=== PATIENT | female | born 1960 | race Caucasian/White ===

== ENCOUNTER 2017-05-15 11:38 | Day surgery (SDC) | payer BC ==
[2017-05-13 09:56] LABS: Basophils % (Auto) 0.4 % (0.0-1.8); Eosinophils # (Auto) 0.3 K/mm3 (0.0-0.4); Eosinophils % (Auto) 3.4 % (0.0-4.3); Hematocrit 43.6 % (30.3-42.9); Hemoglobin 14.8 gm/dl (10.1-14.3); Lymphocytes # (Auto) 1.8 K/mm3 (1.2-5.4); Mean Corpuscular HGB Conc 34 % (30-34); Mean Corpuscular Hemoglobin 29 pg (28-32); Mean Corpuscular Volume 87 fl (79-97); Monocytes # (Auto) 0.5 K/mm3 (0.0-0.8); Monocytes % (Auto) 6.7 % (0.0-7.3); Platelet Count 282 K/mm3 (140-440); Red Blood Count 5.02 M/mm3 (3.65-5.03); Red Cell Distribution Width 14.1 % (13.2-15.2)
[2017-05-13 10:14] LABS: BUN/Creatinine Ratio 30; Blood Urea Nitrogen 15 mg/dL (7-17); Calcium 9.3 mg/dL (8.4-10.2); Hemolysis Index 14
--- NOTE | 2017-05-13 10:24 | Anesthesia Consultation ---
Anesthesia Consult and Med Hx Date of service: 05/15/17 - Airway Anesthetic Teeth Evaluation: Good ROM Head & Neck: Adequate Mental/Hyoid Distance: Adequate Mallampati Class: Class II Intubation Access Assessment: Probably Good - Pulmonary Exam CTA: Yes - Cardiac Exam Cardiac Exam: RRR - Pre-Operative Health Status ASA Pre-Surgery Classification: ASA2 Proposed Anesthetic Plan: General - Pulmonary Hx Smoking: No - Cardiovascular System Hx Hypertension: Yes (since age 34) - Central Nervous System Hx Psychiatric Problems: No - Gastrointestinal Hx Gastroesophageal Reflux Disease: Yes - Other Systems Hx Cancer: No Hx Obesity: Yes - Additional Comments Anesthesia Medical History Comments: Informed consent obtained
[2017-05-15] MEDS ORDERED: ZOFRAN IV PRN (12:59)
[2017-05-15] MEDS ORDERED: DILAUDID IV PRN (12:59)
[2017-05-15] MEDS ORDERED: VERSED IV NR (13:00)
[2017-05-15] MEDS ORDERED: LACTATED RINGERS 1,000 ML IV SCH (13:00)
--- NOTE | 2017-05-15 13:07 | Anesthesia Day of Surgery ---
Anesthesia Day of Surgery - Day of Surgery Patient Examined: Yes Patient H&P Reviewed: Yes Patient is NPO: Yes Beta Blockers: Yes Cardiac Clearance: Yes Pulmonary Clearance: Yes Zohaib's Test: N/A
[2017-05-15] MEDS ORDERED: NACL BACTERIOSTATIC INFILTRATI ONE (13:31)
[2017-05-15] MEDS ORDERED: SILVER NITRATE TP ONE (14:02)
[2017-05-15] MEDS ORDERED: SUBLIMAZE ONE (14:04)
[2017-05-15] MEDS ORDERED: DIPRIVAN 10 MG/ML IV ONE ×2 (14:04→14:16)
[2017-05-15] MEDS ORDERED: XYLOCAINE MPF 2% ONE (14:04)
[2017-05-15] MEDS ORDERED: ZEMURON IV ONE (14:05)
[2017-05-15] MEDS ORDERED: DECADRON ONE (14:23)
[2017-05-15] MEDS ORDERED: ZOFRAN ONE (14:23)
[2017-05-15] MEDS ORDERED: NACL 0.9% IR ONE (14:30)
--- NOTE | 2017-05-15 14:53 | Post Anesthesia Evaluation ---
- Post Anesthesia Evaluation Patient Participated: Yes Airway Patent: Yes Stable Respiratory Function: Yes Nausea/Vomiting: No Temp > 96.8F: Yes Pain Manageable: Yes Adequeate Hydration: Yes Anesthesia Complications: No
--- NOTE | 2017-05-15 15:00 | Operative Report ---
Operative Report Operative Report: Preoperative diagnosis: 1. IUD migration. Postoperative diagnosis: same Procedure: 1. Hysteroscopy. 2. Removal of IUD. Anesthesia: General Surgeon: Dr. Suazo Ager Tender: none Complications: none EBL: minimal IVF: 1 L RL Procedure details: Risks, benefits, and alternatives of the procedure were discussed in detail with the patient which included but not limited to risk of infection, hemorrhage requiring blood transfusion, and uterine perforation. The patient expressed understanding, her questions were answered, and she gave informed consent. Patient was taken to the operating room with an IV fluid infusing lingers lactate. In the operating room, she was placed in a dorsal supine position and given general anesthesia. She was then placed on the stirups in a dorsolithotomy position. The vagina and cervix were washed and she was prepared and draped in usual sterile fashion. Examination under anesthesia revealed normal genitalia, vagina, and cervixT The uterus was 10-12 week size, anteverted, and mobile. The adnexa were nonpalpable. A weighted speculum was placed on the posterior vaginal wall, the anterior lip of the cervix was grasped with an Allis clamp. The cervical os was dilated. The hysteroscope was introduced into the uterine cavity. It revealed the IUD impacted in the upper part of the uterine fundus. A forcep was used to remove the IUD which came out intact. The hysteroscope was removed from the uterine cavity. The counts of laps, needles, sponges and instruments were correct 2. The patient tolerated the procedure well. She was taken to the recovery room in a stable condition.
[2017-05-15] MEDS ORDERED: PERCOCET 5/325 PO PRN (15:30)
[2017-05-15 15:37] VITALS: BP 116/70
== END 2017-05-15 16:10 | disposition home or self-care (01) ==
LOC: OR 11:38
PROVIDERS: ATTEND Obstetrics & Gynecology
DX: T83.32XA Displacement of intrauterine contraceptive device, initial encounter (principal); K21.9 Gastro-esophageal reflux disease without esophagitis; I10 Essential (primary) hypertension; E66.9 Obesity, unspecified; Z68.32 Body mass index [BMI] 32.0-32.9, adult; Y83.1 Surgical operation with implant of artificial internal device as the cause of abnormal reaction of the patient, or of later complication, without mention of misadventure at the time of the procedure
CPT/HCPCS: 36415; 58562; 80048; 85025; 88300; A4217; J1100; J2405; J2704; J3010; J7120; 88302; J2250

== ENCOUNTER 2020-05-06 14:12 | Emergency (ER) | payer BC ==
--- NOTE | 2020-05-06 16:01 | Event Note ---
ED Screening Note Date of service: 05/06/20 ED Screening Note: 59-year-old female presents to the emergency room for fever and nausea x6 days. Last took Tylenol and ibuprofen 12 PM today. Mild cough no sore throat no ear pain no chest pain no stomach pain no shortness of breath. This initial assessment/diagnostic orders/clinical plan/treatment(s) is/are subject to change based on patients health status, clinical progression and re- assessment by fellow clinical providers in the ED. Further treatment and workup at subsequent clinical providers discretion. Patient/guardian urged not to elope from the ED as their condition may be serious if not clinically assessed and managed. Initial orders include:
--- NOTE | 2020-05-06 16:24 | XRay Report ---
XR chest routine 2V INDICATION / CLINICAL INFORMATION: Fever positive Covid contact. COMPARISON: None FINDINGS: SUPPORT DEVICES: None. HEART /PULMONARY VASCULATURE: No significant abnormality. LUNGS / PLEURA: There are bilateral pulmonary airspace consolidations, most pronounced in the right l ower lobe. No pleural effusion. No pneumothorax. ADDITIONAL FINDINGS: No significant additional findings. IMPRESSION: Bilateral airspace disease, most compatible with pneumonia. Signer Name: Elgin Aquino MD Signed: 05/06/2020 4:20 PM Workstation Name: [id number] [id number]
[2020-05-06] MEDS ORDERED: IBUPROFEN 600 MG TAB PO ONE (20:19)
[2020-05-06 20:20] VITALS: BP 139/68
--- NOTE | 2020-05-06 20:20 | Emergency Department Report ---
ED General Adult HPI - General Chief complaint: Fever Stated complaint: FEVER Source: patient Mode of arrival: Ambulatory Limitations: Language Barrier - History of Present Illness Initial comments: 59-year-old female presents to the emergency room for fever and nausea x6 days. Last took Tylenol and ibuprofen 12 PM today. Mild cough no sore throat no ear pain no chest pain no stomach pain no shortness of breath. No loss of taste or smell. Onset/Timin -: days(s) Severity scale (0 -10): 5 Consistency: intermittent Improves with: none Worsens with: none Associated Symptoms: cough (Slight), fever/chills. denies: chest pain, diaphoresis, headaches, loss of appetite, shortness of breath Treatments Prior to Arrival: NSAID, other - Related Data Home Medications Medication Instructions Recorded Confirmed Last Taken Losartan/Hydrochlorothiazide 1 each PO DAILY 05/10/17 05/15/17 05/14/17 19:00 [Losartan-Hctz 50-12.5 mg Tab] Ascorbic Acid [Vitamin C] 1,000 mg PO DAILY 05/15/17 05/15/17 05/11/17 Atenolol [Tenormin] 100 mg PO DAILY 05/15/17 05/15/17 05/14/17 Ergocalciferol [Vitamin D2] 1 cap PO QWEEK 05/15/17 05/15/17 05/13/17 FLUoxetine [PROzac] 10 mg PO QDAY 05/15/17 05/15/17 05/14/17 Ibuprofen 800 mg PO TID 05/15/17 05/15/17 2 Weeks Ago ~05/01/17 Jupiter-3 Fatty Acids/Fish Oil [Fish 1 each PO DAILY 05/15/17 05/15/17 05/11/17 Oil] Omeprazole 20 mg PO DAILY PRN 05/15/17 05/15/17 1 Month Ago ~04/14/17 Previous Rx's Medication Instructions Recorded Last Taken Type Azithromycin [Zithromax Z-VENU] 250 mg PO DAILY #6 tab 05/06/20 Unknown Rx predniSONE [Deltasone] 40 mg PO QDAY 5 Days #10 tab 05/06/20 Unknown Rx Allergies Allergy/AdvReac Type Severity Reaction Status Date / Time No Known Allergies Allergy Verified 05/06/20 14:50 ED Review of Systems ROS: Stated complaint: FEVER Other details as noted in HPI Comment: All other systems reviewed and negative ED Past Medical Hx - Past Medical History Hx Hypertension: Yes (since age 34) Hx GERD: Yes Hx Kidney Stones: Yes - Surgical History Hx Cholecystectomy: Yes - Social History Smoking Status: Never Smoker Substance Use Type: None - Medications Home Medications: Home Medications Medication Instructions Recorded Confirmed Last Taken Type Losartan/Hydrochlorothiazide 1 each PO DAILY 05/10/17 05/15/17 05/14/17 19:00 History [Losartan-Hctz 50-12.5 mg Tab] Ascorbic Acid [Vitamin C] 1,000 mg PO DAILY 05/15/17 05/15/17 05/11/17 History Atenolol [Tenormin] 100 mg PO DAILY 05/15/17 05/15/17 05/14/17 History Ergocalciferol [Vitamin D2] 1 cap PO QWEEK 05/15/17 05/15/17 05/13/17 History FLUoxetine [PROzac] 10 mg PO QDAY 05/15/17 05/15/17 05/14/17 History Ibuprofen 800 mg PO TID 05/15/17 05/15/17 2 Weeks Ago History ~05/01/17 Jupiter-3 Fatty Acids/Fish Oil [Fish 1 each PO DAILY 05/15/17 05/15/17 05/11/17 History Oil] Omeprazole 20 mg PO DAILY PRN 05/15/17 05/15/17 1 Month Ago History ~04/14/17 Azithromycin [Zithromax Z-VENU] 250 mg PO DAILY #6 tab 05/06/20 Unknown Rx predniSONE [Deltasone] 40 mg PO QDAY 5 Days #10 tab 05/06/20 Unknown Rx ED Physical Exam - General Limitations: Language Barrier General appearance: alert, in no apparent distress - Head Head exam: Present: atraumatic, normocephalic - Eye Eye exam: Present: normal appearance - ENT ENT exam: Present: mucous membranes moist - Neck Neck exam: Present: normal inspection - Respiratory Respiratory exam: Present: rales, decreased breath sounds. Absent: respiratory distress - Cardiovascular Cardiovascular Exam: Present: regular rate, normal rhythm. Absent: systolic murmur, diastolic murmur, rubs, gallop - GI/Abdominal GI/Abdominal exam: Present: soft. Absent: distended, tenderness - Extremities Exam Extremities exam: Present: normal inspection - Back Exam Back exam: Present: normal inspection - Neurological Exam Neurological exam: Present: alert, oriented X3, normal gait - Psychiatric Psychiatric exam: Present: normal affect, normal mood - Skin Skin exam: Present: warm, dry, intact, normal color. Absent: rash ED Course Vital Signs 05/06/20 14:54 Temperature 98.9 F Pulse Rate 80 Respiratory 18 Rate Blood Pressure 113/68 O2 Sat by Pulse 96 Oximetry ED Medical Decision Making - Medical Decision Making 59-year-old female presents to the emergency room for fever and nausea x6 days. Last took Tylenol and ibuprofen 12 PM today. Mild cough no sore throat no ear pain no chest pain no stomach pain no shortness of breath. No loss of taste or smell. Critical care attestation.: If time is entered above; I have spent that time in minutes in the direct care of this critically ill patient, excluding procedure time. ED Disposition Clinical Impression: Pneumonia, Suspected severe acute respiratory syndrome coronavirus 2 (SARS-CoV-2) infection Disposition: TO HOME OR SELFCARE Is pt being admited?: No Does the pt Need Aspirin: No Condition: Stable Instructions: Bacterial Pneumonia (ED), Prevent the Spread of COVID-19 if You Are Sick - CDC, COVID-19 Additional Instructions: X-ray shows that she has bilateral patchy pneumonia which is consistent with Covid 19 pneumonia. I would like for her to complete her antibiotics take the steroids and increase her fluid intake. Recommend Tylenol or ibuprofen for temperature. Recommend zinc 50 mg daily, D3 500 units daily, emerg C [id number] daily probiotics daily and melatonin 5 mg daily. Return back t o the emergency room if any worsening shortness of breath chest pain difficulty breathing. Please quarantine for the next 14 days. Prescriptions: predniSONE [Deltasone] 40 mg PO QDAY 5 Days #10 tab Azithromycin [Zithromax Z-VENU] 250 mg PO DAILY #6 tab Referrals: DANYELLE ANTON MD [Primary Care Provider] - 3-5 Days Forms: Accompanied Note
== END 2020-05-06 21:13 | disposition home or self-care (01) ==
LOC: ED 14:12
DX: J18.8 Other pneumonia, unspecified organism (principal); Z20.828 Contact with and (suspected) exposure to other viral communicable diseases; I10 Essential (primary) hypertension; K21.9 Gastro-esophageal reflux disease without esophagitis; Z90.49 Acquired absence of other specified parts of digestive tract; Z79.899 Other long term (current) drug therapy
CPT/HCPCS: 71046; 99283